=== PATIENT | female | born 1970 | race Caucasian/White ===

== ENCOUNTER → 2016-07-03 | Outpatient (CLI) | payer OTHER ==
[2015-11-30 11:45] VITALS: BP 94/59
[~2016-07-03] MED LIST: FISH1CAP PO; L GA1CAP2 PO; LISI10TA2 PO; LORA10TA3 PO; MAGNESIUM TAURATE PO; MELO-156 PO; MULT-208 PO; NAPR500T3 PO
--- NOTE | 2016-07-03 13:24 | EKG ---
[facility] [address] [place] [address] Test Date: 2016-07-03 Test Time: 13:25:00 Pat Name: KAMILA GU Department: Room: Gender: F Clipper Automatic: : 1970 Requested By: SUMAN JACKSON Order Number: [id number] Reading MD: Measurements Intervals [place] Rate: 68 P: 15 UT: 126 QRS: 1 QRSD: 84 T: 12 QT: 364 QTc: 391 Interpretive Statements SINUS RHYTHM NO SPECIFIC ECG ABNORMALITIES RI6.01 No previous ECG available for comparison
[2016-07-03 13:27] LABS: BASO # 0.1 x10^3/uL (0.0-0.2); BASO % 1 % (0-3); EOS % 2 % (0-3); HEMATOCRIT 37.7 % (36.0-47.0); HEMOGLOBIN 12.7 g/dL (12.0-15.5); LYMPH # 2.9 x10^3/uL (1.0-4.8); LYMPH % 24 % (24-48); MEAN CORPUSCULAR HEMOGLOBIN 27 pg (25-35); MEAN CORPUSCULAR HGB CONC 34 g/dL (31-37); MEAN CORPUSCULAR VOLUME 81 fL (79-100); MONO % 5 % (0-9); NEUT % 68 % (31-73); PLATELET COUNT 276 x10^3/uL (140-400); RED BLOOD COUNT 4.67 x10^6/uL (3.50-5.40); RED CELL DISTRIBUTION WIDTH 13.3 % (11.5-14.5); WHITE BLOOD COUNT 12.2 x10^3/uL (4.0-11.0)
[2016-07-03 13:41] LABS: ALBUMIN 3.3 g/dL (3.4-5.0); CALCIUM 8.8 mg/dL (8.5-10.1); CREATININE 0.5 mg/dL (0.6-1.0); GFR 133.4; POTASSIUM 3.9 mmol/L (3.5-5.1)
[2016-07-03 13:45] LABS: INR 1.1 (0.8-1.1); PROTHROMBIN TIME PATIENT 13.2 SEC (11.7-14.0)
[2016-07-03 13:46] LABS: BILIRUBIN,URINE NEGATIVE (NEG); GLUCOSE,URINE NEGATIVE (NEG); NITRITE,URINE NEGATIVE (NEG); PH,URINE 6.5; PROTEIN,URINE NEGATIVE (NEG-TRACE); UROBILINOGEN,URINE 0.2 mg/dL (0.2 mg/dL)
[2016-07-03 13:57] LABS: BACTERIA,URINE FEW /HPF (0-FEW); RBC,URINE OCC /HPF (0-2); SQUAMOUS EPITHELIAL CELL,UR FEW /LPF
--- NOTE | 2016-07-03 15:33 | RAD ---
Chest, 2 views, 07/03/2016: History: Preop evaluation for hip surgery The heart size and pulmonary vascularity are normal. No pulmonary infiltrates are seen. There is no evidence of pleural fluid. IMPRESSION: No acute cardiopulmonary abnormality is detected.
== END | disposition home or self-care (01) ==
LOC: SURGPAT 12:55
PROVIDERS: ATTEND Orthopaedic Surgery
DX: Z01.818 Encounter for other preprocedural examination (principal); I10 Essential (primary) hypertension
CPT/HCPCS: 36415; 71020; 80048; 81001; 82040; 85027; 85610; 85651; 85730; 87641; 93005

== ENCOUNTER 2016-07-16 08:35 | Inpatient (IN) | payer OTHER ==
[2016-07-16] VITALS (7 sets, daily range): BP systolic 84–107; BP diastolic 54–63
[~2016-07-16] VITALS: Ht 162.6 cm; Wt 88.5 kg
[~2016-07-16 08:35] MED LIST changes: +HYDROcodone/APAP 7.5/325MG 1 TAB TABLET PO PRN; +HYDROmorphone 2 MG/ML VIAL IV PRN; +IV RINGERS,LACTATED 1000ML 1,000 ML IV SCH; +LIDOCAINE 1% 1 ML SYRINGE. ID PRN; +MELOXICAM 7.5 MG TABLET PO PRN; +MORPHINE SULFATE 2 MG/ML DISP.SYRIN. IV PRN; +MORPHINE SULFATE 5 MG, KETOROLAC TROMETHAMINE 30 MG, ROPIVacaine 0.5% PF 60 ML, EPINEPH... INT ART ONE; +ONDANSETRON PF 4 MG/2 ML VIAL. IV PRN; +PROCHLORPERAZINE 10 MG/2 ML VIAL. IV PRN; +TRANEXAMIC ACID 1,000 MG in IV NS 50ML -- 1ST BAG INJ ONE; +TRANEXAMIC ACID 1,000 MG in IV NS 50ML -- 2ND BAG INJ ONE; +fentaNYL PF VIAL 100 MCG/2 ML VIAL IV PRN
[2016-07-16 09:06] LABS: NEG OBC UR NEG; POS OBC UR POS
[2016-07-16] MEDS ORDERED: MIDAZOLAM HCL/PF 2 MG/2 ML VIAL. ONE (09:11)
[2016-07-16] MEDS ORDERED: fentaNYL PF VIAL 250 MCG/5 ML VIAL ONE (09:11)
[2016-07-16] MEDS ORDERED: ROCURONIUM 50 MG/5 ML VIAL. ONE ×2 (09:11→12:30)
[2016-07-16] MEDS ORDERED: LIDOCAINE 2% PF Vial for OR 5 ML VIAL. ONE (09:13)
[2016-07-16] MEDS ORDERED: DEXAMETHASONE SOD PHOS 20 MG/5 ML VIAL. ONE (09:13)
[2016-07-16] MEDS ORDERED: PROPOFOL 20 ML IV ONE (09:13)
[2016-07-16] MEDS ORDERED: ONDANSETRON PF 4 MG/2 ML VIAL. ONE (09:13)
[2016-07-16 09:44] LABS: INR 1.1 (0.8-1.1); PROTHROMBIN TIME PATIENT 13.4 SEC (11.7-14.0)
[2016-07-16] MEDS ORDERED: SCOPOLAMINE 1.5MG PATCH. TD SCH (09:45)
[2016-07-16] MEDS ORDERED: MORPHINE SULFATE 2 MG/ML DISP.SYRIN. IV PRN (10:45)
[2016-07-16] MEDS ORDERED: oxyCODONE/APAP 5/325 1 TAB TABLET PO PRN (10:45)
[2016-07-16] MEDS ORDERED: diphenhydrAMINE 50 MG/ML VIAL IV PRN (10:45)
[2016-07-16] MEDS ORDERED: MORPHINE SULFATE 10 MG/ML VIAL. IV PRN (10:45)
[2016-07-16] MEDS ORDERED: fentaNYL PF VIAL 100 MCG/2 ML VIAL IV PRN ×2 (10:45)
[2016-07-16] MEDS ORDERED: oxyCODONE/APAP 7.5/325 1 TAB TABLET PO PRN (10:45)
[2016-07-16] MEDS ORDERED: ACETAMINOPHEN 325 MG TABLET. PO PRN (10:45)
[2016-07-16] MEDS ORDERED: traMADol 50 MG TABLET PO PRN ×2 (10:45)
[2016-07-16] MEDS ORDERED: DEXTROSE 50% 25 GM / 50ML DISP.SYRIN. IV PRN (10:45)
[2016-07-16] MEDS ORDERED: 0.9 % SODIUM CHLORIDE 10 ML DISP.SYRIN. IV PRN (10:45)
[2016-07-16] MEDS ORDERED: CALCIUM CARBONATE 500 MG TAB.CHEW PO PRN (10:45)
[2016-07-16] MEDS ORDERED: MORPHINE SULFATE 4 MG/ML DISP.SYRIN. IV PRN ×2 (10:45)
[2016-07-16] MEDS ORDERED: PROCHLORPERAZINE 10 MG/2 ML VIAL. IV PRN (10:45)
[2016-07-16] MEDS ORDERED: KETOROLAC 30 MG/ML INJ FOR OR. INJ ONE (11:29)
[2016-07-16] MEDS ORDERED: PHENYLEPHRINE in 0.9% NACL PF 1 MG/10 ML DISP.SYRIN. IV ONE (11:33)
[2016-07-16] MEDS ORDERED: ePHEDrine PF IN SALINE 50 MG/5 ML DISP.SYRIN IV ONE ×2 (11:56→14:00)
[2016-07-16] MEDS ORDERED: PHENYLEPHRINE 10 MG/ML VIAL. ONE (12:32)
[2016-07-16] MEDS ORDERED: DESFLURANE > 120 MINUTES IH ONE (13:27)
[2016-07-16] MEDS ORDERED: GLYCOPYRROLATE 1 MG/5 ML VIAL. ONE (13:31)
[2016-07-16] MEDS ORDERED: NEOSTIGMINE METHYLSULFATE 5 MG/5 ML SYRINGE. ONE (13:31)
[2016-07-16] MEDS: fentaNYL PF VIAL 100 MCG/2 ML VIAL IV PRN ×2 (14:57→15:07)
--- NOTE | 2016-07-16 15:00 | RAD ---
Pelvis radiograph History: Postoperative. Comparison: 10/10/2015. Findings: AP view of the pelvis. Upper pelvis has been excluded from examination. A right total hip arthroplasty is present. On this frontal view, relationship of the femoral head component to the acetabular cup appears anatomic. There is at least one acetabular screw. Presence of surgical drain and soft tissue gas is compatible with recent postoperative status. Impression: Postoperative changes of right total hip arthroplasty.
[2016-07-16] MEDS ORDERED: WARFARIN 7.5 MG TABLET. PO ONE (17:00)
[2016-07-16] MEDS: KETOROLAC TROMETHAMINE 10 MG TABLET PO SCH (17:52)
[2016-07-16] MEDS: FERROUS SULFATE 325 MG TABLET. PO SCH (17:52)
[2016-07-16] MEDS: IV DEXTROSE 5 %-0.45 % NACL 1,000 ML IV SCH (17:54)
[2016-07-16] MEDS: HYDROcodone/APAP 10/325 1 TAB TABLET PO PRN (20:52)
[2016-07-16] MEDS: ZOLPIDEM 5 MG TABLET. PO PRN (22:26)
[2016-07-17 03:00] VITALS: BP 83/51
[2016-07-17] MEDS: IV DEXTROSE 5 %-0.45 % NACL 1,000 ML IV SCH ×3 (03:00→22:21)
[2016-07-17] MEDS: KETOROLAC TROMETHAMINE 10 MG TABLET PO SCH ×5 (05:03→23:05)
[2016-07-17 05:35] LABS: INR 1.5 (0.8-1.1); PROTHROMBIN TIME PATIENT 17.1 SEC (11.7-14.0)
[2016-07-17] MEDS ORDERED: MAGNESIUM HYDROXIDE 2,400 MG/30 ML ORAL.SUSP. PO PRN (06:00)
[2016-07-17 06:37] VITALS: BP 90/37
[2016-07-17] MEDS: SENNOSIDES/DOCUSATE 8.6/50MG TABLET. PO SCH (07:58)
[2016-07-17] MEDS: FERROUS SULFATE 325 MG TABLET. PO SCH ×2 (07:58→17:02)
[2016-07-17] MEDS: MULTIVITAMIN with MINERAL TABLET. PO SCH (07:58)
[2016-07-17 08:16] LABS: HEMATOCRIT 29.9 % (36.0-47.0); HEMOGLOBIN 9.6 g/dL (12.0-15.5); RED BLOOD COUNT 3.6 x10^6/uL (3.50-5.40); RED CELL DISTRIBUTION WIDTH 13.9 % (11.5-14.5); WHITE BLOOD COUNT 22.5 x10^3/uL (4.0-11.0)
[2016-07-17] MEDS: HYDROcodone/APAP 10/325 1 TAB TABLET PO PRN (08:51)
--- NOTE | 2016-07-17 09:01 | ACF ---
Admission Forms Criteria MUSCULOSKELETAL DISEASE GRG Clinical Indications for Admission to Inpatient Care (Place 'X' for any and all applicable criteria): Hospital admission is needed for appropriate care of the patient because of 1 or more of the following: [ ]I. Fracture, dislocation, or other musculoskeletal injury requiring inpatient care(medical) as indicated by 1 or more of the following(4)(5)(6)(7) [ ]a) Vertebral fracture requiring observation for instability or neurologic compromise (8) [ ]b) Compartment syndrome (proven or cannot be ruled out during observation level of care) (9) [ ]c) Limb-threatening injury [ ]d) Major injury requiring inpatient stabilization such as traction initiation or external fixation before internal fixation or closure of complex or open fracture [ ]e) Major injury requiring inpatient treatment after emergency or observation level care (as appropriate) [ ]f) Severe pain requiring acute inpatient management [ ]g) Injury with suspicion of abuse or neglect (eg., child, dependent elderly) [ ]II. Newly diagnosed or suspected bone, joint, or orthopedic device infection (e.g., osteomyelitis, septic arthritis) needing 1 or more of the following(1)(2)(3) [ ]a) IV antibiotics that cannot be initiated in other than inpatient setting (e.g., patient too unstable or home infusion not available) [ ]b) Device removal or replacement [ ]c) Bone or soft tissue debridement [ ]d) Joint drainage (drain placement or repetitive aspirations) [ ]III. Severe rheumatologic disease (e.g., systemic lupus erythematosus, rheumatoid arthritis) with complications or comorbidities (Also use Optimal Recovery Care Criteria or General Recovery Criteria as appropriate on the basis of predominant condition), including 1 or more of the following( 10)(11)(12)(13) [ ]a) Severe infection (e.g., SUPER[employer]OR [employer] infection, sepsis) (14) [ ]b) Respiratory complications, including 1 or more of the following : [ ]i) Pleural effusion with respiratory compromise [ ]ii) Pulmonary hypertension with congestive failure [ ]iii) Respiratory failure [ ]iv) Pulmonary hemorrhage (15) [ ]c) Hematologic disease, including 1 or more of the following: [ ]i) Coagulopathy with bleeding [ ]ii) Thrombosis with hypercoagulable state [ ]iii) Thrombotic thrombocytopenic purpura [ ]d) Cerebritis with seizures, psychosis, or other severe abnormalities [ ]e) Vertebral destruction with monitoring needed for cervical myelopathy& possible respiratory compromise [ ]f) Exacerbation that requires inpatient treatment (e.g., intravenous immunosuppression) (16) [ ]g) Acute renal failure [ ]h) Cerebritis with seizures, psychosis, Altered mental status, or other neurologic abnormalities [ ]i) Pericardial effusion with tamponade [ ]j) Vertebral destruction, with monitoring needed for cervical myelopathy and possible respiratory compromise [ ]IV. Severe vasculitis with complications or comorbidities (Also use Optimal Recovery Care Criteria General Recovery Criteria as appropriate on the basis of predominant condition), including 1 or more of the following(11)(12)(17)(18)(19)(20) [ ]a) Exacerbation that requires inpatient treatment (e.g., intravenous immunosuppression) (19)(21) [ ]b) Pulmonary hemorrhage (15) [ ]c) SU[employer] vasculitis with seizures, psychosis, Altered mental status that is severe or persistent, or other severe abnormalities (22) [ ]d) Cerebral infarction [ ]e) Gastrointestinal ischemia [ ]f) Gangrene or threatened amputation [ ]g) Renal failure (16) [ ]h) Other significant complications of vasculitis ( eg., tissue or organ ischemia, organ dysfunction ) [ ]V. Severe myopathy as indicated by 1 or more of the following (28)(29) [ ]a) New onset of airway compromise or inability to swallow [ ]b) Respiratory deterioration with observation needed for impending respiratory failure [ ]c) Exacerbation that requires inpatient treatment (e.g., intravenous immunosuppression) [ ]. Severe crystal gout (arthropathy) indicated by 1 or more of the following (23)(24) [ ]a) Severe pain requiring acute inpatient management [ ]b) Exacerbation that requires inpatient treatment (e.g., intravenous treatment) [ ]VII.Rhabdomyolysis and 1 or more of the following (25)(26)(27) [ ]a) Acute renal failure [ ]b) Need for intravenous hydration after emergency or observation level care (as appropriate) [ ]c) Inability to maintain oral hydration [ ]d) Change in mental status [ ]e) Electrolyte abnormality that remains after emergency or observation level care (as appropriate) [ ]VIII Post amputation complication, as indicated by ANY ONE of the following [ ]a) Infection [ ]b) Dehiscence [ ]c) Myodesis failure [X]IX. Severe pain requiring acute inpatient management due to musculoskeletal condition [ ]X. Musculoskeletal Disease and ALL of the following: [ ]a) Symptom or finding for which emergency and observation care have failed or are not considered appropriate (Use General Criteria: Observation Care as appropriate) [ ]b) Presence of ANY ONE of the following [ ]i) A General Admission Criteria [ ]ii) A Pediatric General Admission Criteria The original [facility] [employer] content created by [facility] has been revised. The portions of the content which have been revised are identified through the use of italic text or in bold, and [facility] has neither reviewed nor approved the modified material. All other unmodified content is copyright [facility]. Please see references footnoted in the original [facility] edition 2016 Admission Criteria Met?: Yes GABBY BELTRE July 17, 2016 09:01
--- NOTE | 2016-07-17 09:10 | PDOC ---
BRIEF OPERATIVE NOTE Date: July 16, 2016 Pre-Op Diagnosis DJD right hip Post-Op Diagnosis Same Procedure Performed Right total hip arthroplasty Surgeon Susan Rubio Anesthesia Type: General Blood Loss 300cc Specimens Obtained femoral head to pathology Findings Above Complications None SUMAN JACKSON MD July 17, 2016 09:10
--- NOTE | 2016-07-17 09:15 | PDOC ---
PROGRESS NOTES Subjective Subjective Problems overnight: She is doing extremely well walking around well with less pain than preoperatively very pleased with her progress no current complaints Objective Vital Signs Vital Signs Date Time Temp Pulse Resp B/P (MAP) Pulse Ox O2 Delivery O2 Flow Rate FiO2 07/17/16 08:08 Room Air 07/17/16 06:37 98.3 67 16 90/37 (54) 92 98.3 07/16/16 16:00 2.0 Physical Exam Slight Antalgia leg lengths appear clinically equal distal neurovascular status intact dressing and Hemovac drain intact Labs Laboratory Tests Test 07/16/16 09:00 07/17/16 04:50 Prothrombin Time 13.4 SEC (11.7-14.0) 17.1 SEC (11.7-14.0) Prothromb Time International Ratio 1.1 (0.8-1.1) 1.5 (0.8-1.1) Activated Partial Thromboplast Time 36 SEC (24-38) Urine Test Negative (NEG) White Blood Count 22.5 x10^3/uL (4.0-11.0) Red Blood Count 3.60 x10^6/uL (3.50-5.40) Hemoglobin 9.6 g/dL (12.0-15.5) Hematocrit 29.9 % (36.0-47.0) Mean Corpuscular Volume 83 fL (79-100) Mean Corpuscular Hemoglobin 27 pg (25-35) Mean Corpuscular Hemoglobin Concent 32 g/dL (31-37) Red Cell Distribution Width 13.9 % (11.5-14.5) Platelet Count 240 x10^3/uL (140-400) Laboratory Tests Test 07/17/16 04:50 White Blood Count 22.5 x10^3/uL (4.0-11.0) Red Blood Count 3.60 x10^6/uL (3.50-5.40) Hemoglobin 9.6 g/dL (12.0-15.5) Hematocrit 29.9 % (36.0-47.0) Mean Corpuscular Volume 83 fL (79-100) Mean Corpuscular Hemoglobin 27 pg (25-35) Mean Corpuscular Hemoglobin Concent 32 g/dL (31-37) Red Cell Distribution Width 13.9 % (11.5-14.5) Platelet Count 240 x10^3/uL (140-400) Prothrombin Time 17.1 SEC (11.7-14.0) Prothromb Time International Ratio 1.5 (0.8-1.1) Imaging Postop x-rays show leg lengths are nearly equal within a couple millimeters offset restored well sized and positioned components Assessment Assessment POD# [1], S/P [right total hip arthroplasty] Problems: Plan Plan of Care Plan outpatient physical therapy on discharge Coumadin anticoagulation Home when medically stable SUMAN JACKSON MD July 17, 2016 09:15
--- NOTE | 2016-07-17 11:46 | OP ---
DATE OF SURGERY: 07/16/2016 PREOPERATIVE DIAGNOSIS: Degenerative joint disease of right hip. POSTOPERATIVE DIAGNOSIS: Degenerative joint disease of right hip. PROCEDURE: Right total hip arthroplasty. SURGEON: Tha Jackson M.D. SPEECH LANG PATH: first donna Mirza. ESTIMATED BLOOD LOSS: 300 mL. COMPLICATIONS: None. OPERATIVE INDICATIONS: The patient is a 45-year-old female with severe intractable right hip pain and degenerative changes present on x-ray. She has failed nonoperative measures and continues to have severe pain very limiting to her activities of daily living as noted in her preoperative history and physical. I had gone over with her the possibility of continued pain, leg length discrepancy, infection, instability, premature luke loosening, medical or other anesthetic complications among others. All her questions were answered. Consent was obtained and she agrees to proceed with operative evaluation and treatment and specifically does desire an anterior approach to the hip based on our previous discussions. DESCRIPTION OF PROCEDURE: The patient was identified, procedure verified, patient placed in the supine position on the [place] fracture table. All bony prominences were well padded and the right hip was prepped and draped in standard sterile fashion. After timeout was performed, the patient and procedure identified and verified. The fluoroscopic AP image of the hip was first obtained for the purpose of determining leg lengths. An incision was made then just distal and lateral to the anterior superior iliac spine and course it along the tensor fascia latae. Dissection carried out down to the tensor fascia latae and the fascia was split. Tensor fascia latae muscle was brought laterally. The circumflex vessels were coagulated with Aquamantys device. The pericapsular anterior fat was excised for visualization of the anterior capsule with a split in a T fashion. The femur was cut under fluoroscopic guidance and napkin ring of bone was removed and the femoral head was removed and sized at approximately a size 47-48. The labrum and contents of the fovea were excised as well and successive size reaming carried up to a size 50 with a size 52 Continuum trabecular metal acetabular liner placed under fluoroscopic guidance, fixated with a single 50 mm screws superiorly directed and excellent fixation obtained. Excellent version obtained under fluoroscopic guidance with solid state of the cup. The standard liner was placed. A capsular release was performed to preserve the external rotators and the leg was then held in maximal external rotation and brought down into extension and adduction to allow exposure of the proximal femur where reaming and broaching was then carried out up to a size 3 where excellent fit of the broach was obtained, trial setting with a -3.5 resulted in excellent stability, minimal increase in leg length, full range of motion. Trial components were removed. A standard vitamin E acetabular liner was impacted into place. A standard #3 Avenir ingrowth implant was placed as well and was very solid in fit and a -3.5 x 36 mm femoral head was tapped in place to engage the Cerda taper and was reduced in place. Again, excellent stability was obtained. Minimal, about 4 mm leg length, increase was noted under fluoroscopic evaluation and stability was intact throughout range of motion. Thorough irrigation carried out with normal saline solution. Hemovac drain and pain catheter were placed. Pain catheter mixture injected into the capsule subcutaneous area and surrounding tissues. Fascia was closed with running #1 Vicryl, subcutaneous closure with buried Vicryl sutures, subcuticular closure with 4-0 Monocryl. Sterile dressings were applied. The patient was extubated, returned to recovery room in stable condition having tolerated the procedure well. Please note that fiona Rubio, podiatric assistant, was present for the prepping and draping, assisted in retraction and closure of the subcuticular layer. THA JACKSON MD DR: NALINI/vito JOB#: [id number] / [id number] KAMILA Iglesias APRN
[2016-07-17] MEDS: HYDROcodone/APAP 7.5/325MG 1 TAB TABLET PO PRN ×3 (12:56→23:05)
[2016-07-17] MEDS ORDERED: WARFARIN 4 MG TABLET. PO ONE (16:00)
[2016-07-17] MEDS ORDERED: BISACODYL 10 MG SUPP.RECT. PR PRN (16:00)
[2016-07-17 17:45] VITALS: BP 99/66
[2016-07-17] MEDS: ZOLPIDEM 5 MG TABLET. PO PRN (23:05)
[2016-07-18 05:09] LABS: HEMOGLOBIN 8.7 g/dL (12.0-15.5)
[2016-07-18 05:22] LABS: INR 2.6 (0.8-1.1); PROTHROMBIN TIME PATIENT 25.9 SEC (11.7-14.0)
[2016-07-18] MEDS: KETOROLAC TROMETHAMINE 10 MG TABLET PO SCH ×2 (05:48→12:49)
[2016-07-18] MEDS: HYDROcodone/APAP 7.5/325MG 1 TAB TABLET PO PRN ×2 (05:54→12:51)
[2016-07-18 06:00] VITALS: BP 96/50
[2016-07-18] MEDS: SENNOSIDES/DOCUSATE 8.6/50MG TABLET. PO SCH (08:24)
[2016-07-18] MEDS: FERROUS SULFATE 325 MG TABLET. PO SCH (08:25)
[2016-07-18] MEDS: MULTIVITAMIN with MINERAL TABLET. PO SCH (08:25)
[2016-07-18] MEDS: IV DEXTROSE 5 %-0.45 % NACL 1,000 ML IV SCH (09:00)
[2016-07-18] MEDS ORDERED: POLYETHYLENE GLYCOL 3350 17 GM PACKET. PO SCH (09:00)
[2016-07-18] MEDS: HYDROcodone/APAP 10/325 1 TAB TABLET PO PRN ×2 (09:33→15:00)
--- NOTE | 2016-07-18 09:35 | PDOC ---
ORTHO PROGRESS NOTES Subjective Dilcia is doing well, pain is controlled. She wants to try stairs with PT today before deciding if she wants to go home early. Post-op Day: 2 (Right BLADIMIR anterior approach) Vitals Vital Signs Date Time Temp Pulse Resp B/P (MAP) Pulse Ox O2 Delivery O2 Flow Rate FiO2 07/18/16 08:56 Room Air 07/18/16 06:00 98.7 71 18 96/50 (65) 94 98.7 Labs Laboratory Tests Test 07/17/16 04:50 07/18/16 03:30 White Blood Count 22.5 x10^3/uL (4.0-11.0) Red Blood Count 3.60 x10^6/uL (3.50-5.40) Hemoglobin 9.6 g/dL (12.0-15.5) 8.7 g/dL (12.0-15.5) Hematocrit 29.9 % (36.0-47.0) 27.0 % (36.0-47.0) Mean Corpuscular Volume 83 fL (79-100) Mean Corpuscular Hemoglobin 27 pg (25-35) Mean Corpuscular Hemoglobin Concent 32 g/dL (31-37) 32 g/dL (31-37) Red Cell Distribution Width 13.9 % (11.5-14.5) Platelet Count 240 x10^3/uL (140-400) Prothrombin Time 17.1 SEC (11.7-14.0) 25.9 SEC (11.7-14.0) Prothromb Time International Ratio 1.5 (0.8-1.1) 2.6 (0.8-1.1) Laboratory Tests Test 07/18/16 03:30 Hemoglobin 8.7 g/dL (12.0-15.5) Hematocrit 27.0 % (36.0-47.0) Mean Corpuscular Hemoglobin Concent 32 g/dL (31-37) Prothrombin Time 25.9 SEC (11.7-14.0) Prothromb Time International Ratio 2.6 (0.8-1.1) Notes Patient is awake and alert. Breathing unlabored, no acute stress. Ambulating independently with walker. Incision is well approximated, no drainage. Neurovascular intact bilateral lower extremities Problems: (1) Degenerative joint disease of right hip Assessment and Plan Continue PT OT, weightbearing as tolerated Possibly discharged today, we will no after PT session with stairs Pain controlled Anticoagulation per pharmacy Problem Qualifiers (1) Degenerative joint disease of right hip: Osteoarthritis type: primary Qualified Codes: M16.11 - Unilateral primary osteoarthritis, right hip JOAQUIN BECKHAM APRN Jul 18, 2016 09:35
[2016-07-18] MEDS ORDERED: HYDR-963 PO (12:12)
[2016-07-18] MEDS ORDERED: FERR-26 PO (12:14)
[2016-07-18] MEDS ORDERED: WARF2TAB7 PO (12:14)
[2016-07-18 12:52] VITALS: BP 102/71
--- NOTE | 2016-07-18 15:48 | PATHOLOGY ---
PATHOLOGY REPORT * * * * * * * * FINAL DIAGNOSIS: Femoral head and femoral neck, right total hip arthroplasty: - Advanced degenerative arthritis. REPORT ELECTRONICALLY SIGNED BY: Keegan Olvera M.D. DATE/TIME: 07/18/2016 15:47 * * * * * * * * GROSS PATHOLOGY: Received in formalin labeled "Dilcia Pizarro, right hip bone," is a femoral head measuring 4.8 x 4.8 x 4.1 cm in greatest dimensions and separately submitted femoral neck measuring 4.1 x 3.7 x 1.3 cm. The articular surface is pale allen, smooth to light allen, granular in appearance with evidence of eburnation. Sectioning the bone reveals light allen cut surfaces. Log Processor Operator tissue is submitted in cassette A1, following decalcification. (CAA; 07/17/2016) INITIAL CPT CODE(S): A; 49122, 88061 Professional services [place] [facility] [address] Technical services performed by [facility] at [address] [place] [address], [facility] [address] [address]. SPECIMEN(S) RECEIVED: A.Right hip bone and tissue CLINICAL HISTORY: OA right hip PATIENT: DILCIA PIZARRO /AGE: 7 1970 (Age: 45) PATIENT #: [id number] ALT CASE #: SPECIMEN COLLECTION DATE: 07/16/2016 SPECIMEN RECEIVED DATE: 07/16/2016 [facility] - [address] [place] [address] - PHONE: [phone] * * * END OF REPORT * * *
--- NOTE | 2016-07-21 05:35 | DS ---
DATE OF DISCHARGE: 07/18/2016 PRINCIPAL DIAGNOSIS: Degenerative joint disease of right hip. OPERATIVE PROCEDURE: Right total hip arthroplasty, anterior approach. DISCHARGE MEDICATIONS: Percocet 7.5/325, Coumadin as directed by anticoagulation clinic. Resume preoperative medications. ACTIVITY: Weightbearing as tolerated, no total hip precautions necessary. Report any redness, drainage, fever, chills, uncontrolled pain or other problems. May shower as long as dressing is healed, dry and intact. Follow up with Dr. Davis in 2 weeks. BRIEF DESCRIPTION OF HOSPITAL COURSE: The patient underwent uncomplicated anterior approach total hip arthroplasty on date of admission. She actually ambulated somewhat on the day of admission and was doing extremely well on postoperative day #1, less pain preoperatively, was getting around well with physical therapy, remained medically stable throughout her stay and was discharged to home on postoperative day #2 with planned outpatient physical therapy scheduled. SUMAN DAVIS MD DR: NALINI/vito JOB#: [id number] / [id number] KAMILA Iglesias APRN
== END 2016-07-18 15:25 | disposition home or self-care (01) | DRG 470 ==
LOC: OPSVCIP 08:35 → 4 SOUTHEST 16:12
PROVIDERS: ADMIT Orthopaedic Surgery; ATTEND Orthopaedic Surgery
PROC: 0SR901Z Replacement of Right Hip Joint with Metal Synthetic Substitute, Open Approach (ICD-10-PCS; principal; 2016-07-16 10:15)
DX: M16.11 Unilateral primary osteoarthritis, right hip (principal); N39.0 Urinary tract infection, site not specified; G25.81 Restless legs syndrome; G47.00 Insomnia, unspecified; E66.9 Obesity, unspecified; K63.5 Polyp of colon; K57.30 Diverticulosis of large intestine without perforation or abscess without bleeding; K64.8 Other hemorrhoids; T14.8 Other injury of unspecified body region; W57.XXXA Bitten or stung by nonvenomous insect and other nonvenomous arthropods, initial encounter; Y93.89 Activity, other specified; Y92.89 Other specified places as the place of occurrence of the external cause; Y99.8 Other external cause status; Z80.0 Family history of malignant neoplasm of digestive organs; Z68.39 Body mass index [BMI] 39.0-39.9, adult; Z83.3 Family history of diabetes mellitus; Z82.49 Family history of ischemic heart disease and other diseases of the circulatory system; Z82.0 Family history of epilepsy and other diseases of the nervous system; Z84.89 Family history of other specified conditions; Z82.3 Family history of stroke; Z80.52 Family history of malignant neoplasm of bladder; Z88.2 Allergy status to sulfonamides; Z71.3 Dietary counseling and surveillance
CPT/HCPCS: 36415; 72170; 76000; 81025; 85014; 85018; 85027; 85610; 85730; 86850; 86900; 86901; 88304; 88311; C1887; J0171; J0690; J1100; J1885; J2250; J2270; J2370; J2405; J2704; J2710; J2795; J3010; J3490; J7030; J7120; 97116; 97150; 97535